=== PATIENT | female | born 1955 | race Caucasian/White ===

== ENCOUNTER → 2017-02-23 | Outpatient (CLI) | payer OTHER ==
[~2017-02-23] MED LIST: SYNTHROID0.05 MG/TA PO
== END ==
LOC: MC.RAD 13:30
DX: Z12.31 Encounter for screening mammogram for malignant neoplasm of breast (principal)

== ENCOUNTER 2018-01-07 13:10 | Emergency (ER) | payer OTHER ==
[~2018-01-07] VITALS: Ht 7.6 cm; Wt 74.5 kg
[2018-01-07 13:12] VITALS: TEMP 97.5
[2018-01-07] MEDS ORDERED: NORCO 325 MG-51 TAB PO (17:30)
[2018-01-07] MEDS ORDERED: CRUTCHES MC (17:41)
[2018-01-07 18:43] VITALS: BP 128/72; PULSE 67
== END 2018-01-07 18:50 | disposition home or self-care (01) ==
LOC: COL.ER 13:10
DX: S82.851A Displaced trimalleolar fracture of right lower leg, initial encounter for closed fracture (principal); E03.9 Hypothyroidism, unspecified; W01.0XXA Fall on same level from slipping, tripping and stumbling without subsequent striking against object, initial encounter; X50.0XXA Overexertion from strenuous movement or load, initial encounter; Y92.009 Unspecified place in unspecified non-institutional (private) residence as the place of occurrence of the external cause
CPT/HCPCS: J2250; J2270; J2405; J2704

== ENCOUNTER → 2019-05-15 | Outpatient (CLI) | payer MEDICARE, OTHER ==
[~2019-05-15] MED LIST changes: +CRUTCHES MC; +NORCO 325 MG-51 TAB PO
== END ==
LOC: MC.RAD 14:37
DX: Z12.31 Encounter for screening mammogram for malignant neoplasm of breast (principal)

== ENCOUNTER 2019-08-17 09:56 | Emergency (ER) | payer MEDICARE, OTHER ==
[~2019-08-17] VITALS: Ht 160 cm; Wt 75.5 kg
[2019-08-17 10:00] VITALS: TEMP 97.8
[2019-08-17 11:04] LABS: BASO % 0.7 % (0.0-2.0); EOS # 0.1 (0.0-0.7); EOS % 2.4 % (0-4.0); HEMATOCRIT 41.3 % (37.0-47.0); HEMOGLOBIN 14.2 g/dl (12.5-16.0); LYMPH # 1.3 (1.2-3.4); LYMPH % 21.9 % (20.0-51.0); MEAN CELL VOLUME 91 fl (80.0-100.0); MEAN CORPUSCULAR HEMOGLOBIN 31 pg (27.0-31.0); MEAN CORPUSCULAR HGB CONC 34 g/dl (33.0-37.0); MEAN PLATELET VOLUME 9.7 fl (7.4-10.4); MONO # 0.4 (0.1-0.6); MONO % 7.5 % (1.7-9.3); PLATELET COUNT 264 K/mm3 (130-400); RED BLOOD COUNT 4.55 M/mm3 (4.10-5.30); REDCELL DISTRIBUTION WIDTH-CV 12.4 % (11.5-14.5)
[2019-08-17 11:14] LABS: ALBUMIN 4.3 gm/dL (3.5-5.0); BILIRUBIN,TOTAL 0.7 mg/dL (0.0-1.0); CALCIUM 9.5 mg/dL (8.4-10.2); CREATININE, serum 0.61 (0.52-1.25); POTASSIUM 4.2 mmol/L (3.4-5.0); TOTAL PROTEIN 7.3 gm/dL (6.4-8.2)
[2019-08-17 13:01] VITALS: BP 131/78; PULSE 78
== END 2019-08-17 13:01 | disposition home or self-care (01) ==
LOC: COL.ER 09:56
PROVIDERS: Emergency Medicine
DX: S09.90XA Unspecified injury of head, initial encounter (principal); S01.01XA Laceration without foreign body of scalp, initial encounter; S39.91XA Unspecified injury of abdomen, initial encounter; R40.2412 Glasgow coma scale score 13-15, at arrival to emergency department; W55.12XA Struck by horse, initial encounter
CPT/HCPCS: Q9967

== ENCOUNTER → 2019-08-24 | Outpatient (CLI) | payer MEDICARE, OTHER ==
[2019-08-24 17:02] VITALS: BP 149/78; PULSE 68; TEMP 97.6
== END ==
LOC: COL.ER 16:59
DX: Z48.02 Encounter for removal of sutures (principal)